=== PATIENT | male | born 1985 | race Caucasian/White ===

== ENCOUNTER 2017-04-02 09:11 | Observation (INO) | payer OTHER ==
[2017-04-02] VITALS (12 sets, daily range): BP systolic 153–189; BP diastolic 94–132; PULSE 90–132; RESP 14–28; TEMP 98.2–98.4; O2SAT 97–100
[~2017-04-02] VITALS: Ht 167.6 cm; Wt 100.0 kg
[2017-04-02] MEDS ORDERED: SODIUM CHLORIDE 0.9% FLUSH 10 ML FLUSH IVF PRN (10:00)
[2017-04-02] MEDS ORDERED: SODIUM CHLOR 0.9% 1000 ML INJ 1,000 ML IV ONE ×3 (10:00→13:00)
--- NOTE | 2017-04-02 10:05 | PD ---
HPI Chief Complaint: Hypertension Time Seen by Provider: 09:35 Travel History International Travel<30 days: No Contact w/Intl Traveler<30days: No Traveled to known affect area: No History of Present Illness HPI Patient is a 32-year-old male who presents to emergency room with complaints of hypertension. Patient reports that he noticed increased junk in his left eye, reports that he went to the [facility] this AM, and was treated for his conjunctivitis with Polytrim. Reports that he was told that his blood pressure was very high and that he had to go straight to the ER for evaluation. Patient reports that he was told that he had hypertension for years , reports that he did see his primary care doctor last year and at that time, his blood pressure was high. Reports that he was never started on any anti- hypertensives. Reports that today, he has a mild posterior headache. Denies any vision changes, denies any headache/dizzyness at this time. Denies n/v. Reports that he did have an episode of chest pain on route to the urgent care. Patient reports that for 30 minutes as he was driving to the urgent care, he felt sharp stabbing pain to his chest with associated shortness of breath, reports that he had resolution of symptoms shortly after he rested urgent care center. Patient denies any history of PE or DVT, denies any history of any recent travels or prolonged trips. He denies any drug abuse. Patient denies any chest pain at this time. Patient reports that he does not have any medical history and does not have any past surgical histories. He does smoke one pack of cigarettes per day. Patient with strong family history for hypertension. PFSH Past Medical History Anxiety: Yes Cardiovascular Problems: Yes (htn in past with no meds) Diminished Hearing: No Immunizations Current: Yes Past Surgical History Surgical History: No Previous Surgery Social History Alcohol Use: No Tobacco Use: Yes (a pack a day ) Substance Use: No Allergies-Medications (Allergen,Severity, Reaction): Coded Allergies: No Known Allergies (Unverified , 04/02/17) Reported Meds & Prescriptions Reported Meds & Active Scripts Active Norvasc (Amlodipine Besylate) 5 Mg Tab 5 Mg PO DAILY Review of Systems General / Constitutional: No: Fever Eyes: No: Visual changes HENT: Positive: Headaches Cardiovascular: Positive: Chest Pain or Discomfort, Tachycardia Respiratory: Positive: Shortness of Breath Gastrointestinal: No: Abdominal Pain Genitourinary: No: Dysuria Musculoskeletal: No: Pain Skin: No Rash Neurologic: No: Weakness Psychiatric: No: Depression Endocrine: No: Polydipsia Hematologic/Lymphatic: No: Easy Bruising Physical Exam Narrative GENERAL: No acute distress, nontoxic SKIN: Focused skin assessment warm/dry. HEAD: Atraumatic. Normocephalic. ENT: No nasal bleeding or discharge. Mucous membranes pink and moist. NECK: Trachea midline. No JVD. CARDIOVASCULAR: Tachycardic. No murmur appreciated. RESPIRATORY: No accessory muscle use. Clear to auscultation. Breath sounds equal bilaterally. GASTROINTESTINAL: Abdomen soft, non-tender, nondistended. Hepatic and splenic margins not palpable. MUSCULOSKELETAL: No obvious deformities. No clubbing. No cyanosis. No edema. NEUROLOGICAL: Awake and alert. No obvious cranial nerve deficits. Motor grossly within normal limits. Normal speech. PSYCHIATRIC: Appropriate mood and affect; insight and judgment normal. Data Data Last Documented VS Vital Signs Date Time Temp Pulse Resp B/P Pulse Ox O2 Delivery O2 Flow Rate FiO2 04/02/17 12:54 117 18 153/102 97 Room Air 04/02/17 09:13 98.2 Orders Electrocardiogram (04/02/17 09:50) B-Type Natriuretic Peptide (04/02/17 09:50) Ckmb (Isoenzyme) Profile (04/02/17 09:50) Complete Blood Count With Diff (04/02/17 09:50) Comprehensive Metabolic Panel (04/02/17 09:50) D-Dimer (04/02/17 09:50) Magnesium (Mg) (04/02/17 09:50) Prothrombin Time / Inr (Pt) (04/02/17 09:50) Act Partial Throm Time (Ptt) (04/02/17 09:50) Troponin I (04/02/17 09:50) Lipase (04/02/17 09:50) Chest, Single Ap (04/02/17 09:50) Ecg Monitoring (04/02/17 09:50) Iv Access Insert/Monitor (04/02/17 09:50) Oximetry (04/02/17 09:50) Sodium Chloride 0.9% Flush (Ns Flush) (04/02/17 10:00) Thyroid Stimulating Hormone (04/02/17 09:50) Drug Screen, Random Urine (04/02/17 09:50) Sodium Chlor 0.9% 1000 Ml Inj (Ns 1000 M (04/02/17 10:00) Amlodipine (Norvasc) (04/02/17 10:15) CKMB (04/02/17 08:50) CKMB% (04/02/17 08:50) Sodium Chlor 0.9% 1000 Ml Inj (Ns 1000 M (04/02/17 11:45) Ct Pulmonary Angiogram (04/02/17 12:56) Sodium Chlor 0.9% 1000 Ml Inj (Ns 1000 M (04/02/17 13:00) Iohexol 350 Inj (Omnipaque 350 Inj) (04/02/17 13:36) Labs Laboratory Tests Test 04/02/17 08:50 White Blood Count 13.0 TH/MM3 Red Blood Count 5.80 MIL/MM3 Hemoglobin 16.5 GM/DL Hematocrit 48.6 % Mean Corpuscular Volume 83.8 FL Mean Corpuscular Hemoglobin 28.5 PG Mean Corpuscular Hemoglobin 34.0 % Concent Red Cell Distribution Width 13.8 % Platelet Count 258 TH/MM3 Mean Platelet Volume 7.3 FL Neutrophils (%) (Auto) 70.2 % Lymphocytes (%) (Auto) 19.9 % Monocytes (%) (Auto) 8.7 % Eosinophils (%) (Auto) 0.8 % Basophils (%) (Auto) 0.4 % Neutrophils # (Auto) 9.1 TH/MM3 Lymphocytes # (Auto) 2.6 TH/MM3 Monocytes # (Auto) 1.1 TH/MM3 Eosinophils # (Auto) 0.1 TH/MM3 Basophils # (Auto) 0.1 TH/MM3 CBC Comment DIFF FINAL Differential Comment Prothrombin Time 10.0 SEC Prothromb Time International 0.9 RATIO Ratio Activated Partial 36.3 SEC Thromboplast Time D-Dimer Quantitative (PE/DVT) 0.20 MG/L FEU Sodium Level 137 MEQ/L Potassium Level 3.9 MEQ/L Chloride Level 105 MEQ/L Carbon Dioxide Level 25.3 MEQ/L Anion Gap 7 MEQ/L Blood Urea Nitrogen 12 MG/DL Creatinine 1.04 MG/DL Estimat Glomerular Filtration 83 ML/MIN Rate Random Glucose 102 MG/DL Calcium Level 9.3 MG/DL Magnesium Level 2.0 MG/DL Total Bilirubin 0.5 MG/DL Aspartate Amino Transf 50 U/L (AST/SGOT) Alanine Aminotransferase 89 U/L (ALT/SGPT) Alkaline Phosphatase 62 U/L Total Creatine Kinase 513 U/L Creatine Kinase MB 2.8 NG/ML Creatine Kinase MB % 0.5 % Troponin I LESS THAN 0.02 NG/ML B-Type Natriuretic Peptide LESS THAN 2 PG/ML Total Protein 8.3 GM/DL Albumin 4.3 GM/DL Lipase 117 U/L Thyroid Stimulating Hormone 8.940 uIU/ML [address] [place] [address] Medical Decision Making Medical Screen Exam Complete: Yes Emergency Medical Condition: Yes Interpretation(s) EKG at 0945: Sinus tachycardia at 125bpm, qt/qtc: 283/357, nonspecific t wave changes Vital Signs Date Time Temp Pulse Resp B/P Pulse Ox O2 Delivery O2 Flow Rate FiO2 04/02/17 09:48 128 14 171/108 98 Room Air 04/02/17 09:24 132 18 168/132 97 Room Air 168/108 04/02/17 09:24 98 Room Air 04/02/17 09:13 98.2 130 20 189/114 98 Room Air Differential Diagnosis Differential includes hypertension, electrolyte abnormalities, PE, DVT, dehydration, drug abuse, anxiety reaction, hyperthyroidism Narrative Course Patient is a 32-year-old male who presents to emergency room for evaluation of hypertension. Patient was seen in urgent care earlier today and was diagnosed with an eye infection, reports that he was told to go to the emergency room emergently as his blood pressure was elevated. Patient unsure of what his blood pressure was at the urgent care center. Patient at this time with no complaints except for mild posterior headache. Patient has normal neurological exam, denies any chest pain or shortness of breath at this time. Patient does admit to having sharp stabbing chest pain as well as shortness of breath on route to the urgent care center today, symptoms resolved once he arrived at the urgent care center. Vital signs reviewed Vital Signs Date Time Temp Pulse Resp B/P Pulse Ox O2 Delivery O2 Flow Rate FiO2 04/02/17 09:48 128 14 171/108 98 Room Air 04/02/17 09:24 132 18 168/132 97 Room Air 168/108 04/02/17 09:24 98 Room Air 04/02/17 09:13 98.2 130 20 189/114 98 Room Air Patient was placed on a pilot fuel engineer upon arrival to the emergency room. Patient is tachycardic with heart rate in the 120s, his blood pressure was elevated at 189/114. Patient with no documented history of hypertension, plan to start him on antihypertensives as he does complain of posterior headache at this time and does report a 6 year history of hypertension which has been untreated. he understands that he must follow-up with his primary care doctor as soon as possible as you will need blood pressure rechecks. In the meantime, plan to check basic labs, will check TSH, as well as a d- dimer. will give IV fluid fluids and monitor on a pilot fuel engineer. Patient has received 3L IVF, HR still in the 120-130s. Plan to obs for further workup of persistent tachycardia Laboratory Tests Test 04/02/17 08:50 White Blood Count 13.0 TH/MM3 (4.0-11.0) Red Blood Count 5.80 MIL/MM3 (4.50-5.90) Hemoglobin 16.5 GM/DL (13.0-17.0) Hematocrit 48.6 % (39.0-51.0) Mean Corpuscular Volume 83.8 FL (80.0-100.0) Mean Corpuscular Hemoglobin 28.5 PG (27.0-34.0) Mean Corpuscular Hemoglobin 34.0 % Concent (32.0-36.0) Red Cell Distribution Width 13.8 % (11.6-17.2) Platelet Count 258 TH/MM3 (150-450) Mean Platelet Volume 7.3 FL (7.0-11.0) Neutrophils (%) (Auto) 70.2 % (16.0-70.0) Lymphocytes (%) (Auto) 19.9 % (9.0-44.0) Monocytes (%) (Auto) 8.7 % (0.0-8.0) Eosinophils (%) (Auto) 0.8 % (0.0-4.0) Basophils (%) (Auto) 0.4 % (0.0-2.0) Neutrophils # (Auto) 9.1 TH/MM3 (1.8-7.7) Lymphocytes # (Auto) 2.6 TH/MM3 (1.0-4.8) Monocytes # (Auto) 1.1 TH/MM3 (0-0.9) Eosinophils # (Auto) 0.1 TH/MM3 (0-0.4) Basophils # (Auto) 0.1 TH/MM3 (0-0.2) CBC Comment DIFF FINAL Differential Comment Prothrombin Time 10.0 SEC (9.8-11.6) Prothromb Time International 0.9 RATIO Ratio Activated Partial 36.3 SEC Thromboplast Time (24.3-30.1) D-Dimer Quantitative (PE/DVT) 0.20 MG/L FEU (0.00-0.50) Sodium Level 137 MEQ/L (136-145) Potassium Level 3.9 MEQ/L (3.5-5.1) Chloride Level 105 MEQ/L (98-107) Carbon Dioxide Level 25.3 MEQ/L (21.0-32.0) Anion Gap 7 MEQ/L (5-15) Blood Urea Nitrogen 12 MG/DL (7-18) Creatinine 1.04 MG/DL (0.60-1.30) Estimat Glomerular Filtration 83 ML/MIN (>89) Rate Random Glucose 102 MG/DL (74-106) Calcium Level 9.3 MG/DL (8.5-10.1) Magnesium Level 2.0 MG/DL (1.5-2.5) Total Bilirubin 0.5 MG/DL (0.2-1.0) Aspartate Amino Transf 50 U/L (15-37) (AST/SGOT) Alanine Aminotransferase 89 U/L (12-78) (ALT/SGPT) Alkaline Phosphatase 62 U/L (45-117) Total Creatine Kinase 513 U/L (39-308) Creatine Kinase MB 2.8 NG/ML (0.5-3.6) Creatine Kinase MB % 0.5 % (0.0-4.0) Troponin I LESS THAN 0.02 NG/ML (0.02-0.05) B-Type Natriuretic Peptide LESS THAN 2 PG/ML (0-100) Total Protein 8.3 GM/DL (6.4-8.2) Albumin 4.3 GM/DL (3.4-5.0) Lipase 117 U/L (73-393) Thyroid Stimulating Hormone 8.940 uIU/ML 3rd Gen (0.358-3.740) Last Impressions CT Angiography 04/02/17 7786 Signed Impressions: Service Date/Time: Sunday, April 02, 2017 13:18 - CONCLUSION: 1. No pulmonary embolus identified. 2. Decreased attenuation of the liver suggesting fatty infiltration. Chato Sepulveda MD Chest X-Ray 04/02/17 0950 Signed Impressions: Service Date/Time: Sunday, April 02, 2017 09:47 - CONCLUSION: 1. No acute cardiopulmonary findings. Chato Sepulveda MD Physician Communication Physician Communication case reviewed with dr. thompson who accepts pt to service for obs Diagnosis Primary Impression: Hypertension Qualified Code: I10 - Hypertension, unspecified type Additional Impressions: Abnormal TSH Rhabdomyolysis Qualified Code: M62.82 - Non-traumatic rhabdomyolysis Tachycardia Admitting Information Admitting Physician Requests: Observation Patient Instructions: General Instructions Additional Instructions: Please provide patient with a copy of his lab work at discharge Please follow up with your primary care doctor in 2-3 days, please bring the copy of your lab work to your doctor's office as you did have abnormal lab work today and you will need a full thyroid panel performed by your primary care doctor You will need to have your blood pressure rechecked, in 2-3 days, if you cannot be seen by your primary care doctor, return to the ER for blood pressure re- check Please take all medications as prescribed Please drink plenty of fluids Return to ER if symptoms worsen or persist Return to ER as needed Med/Other Pt SpecificInfo: Prescription(s) given Scripts Amlodipine (Norvasc)5 Mg Tab5 Mg PO DAILY #30 TAB Ref 0 Prov:Mary Soliz DO 04/02/17 Mary Soliz DO Apr 02, 2017 10:05
[2017-04-02] MEDS ORDERED: amLODIPine BESYLATE 5 MG TAB PO ONE (10:15)
--- NOTE | 2017-04-02 10:15 | RADRPT ---
EXAM DATE/TIME: 04/02/2017 09:47 [facility] COMPARISON: No previous studies available for comparison. INDICATIONS : Sent by [facility], high blood pressure. MEDICAL HISTORY : None. SURGICAL HISTORY : None. ENCOUNTER: Initial ACUITY: 1 day PAIN SCORE: 0/10 LOCATION: Bilateral chest FINDINGS: A single view of the chest demonstrates the lungs to be symmetrically aerated without evidence of mas s, infiltrate or effusion. The cardiomediastinal contours are unremarkable. Osseous structures are intact. CONCLUSION: 1. No acute cardiopulmonary findings. Chato Sepulveda MD on April 02, 2017 at 10:12 Board Certified Radiologist. This report was verified electronically.
[2017-04-02 10:26] LABS: AUTOMATED NEUTROPHIL # 9.1 TH/MM3 (1.8-7.7); BASOPHIL # 0.1 TH/MM3 (0-0.2); BASOPHIL % 0.4 % (0.0-2.0); EOSINOPHIL # 0.1 TH/MM3 (0-0.4); EOSINOPHIL % 0.8 % (0.0-4.0); HEMATOCRIT 48.6 % (39.0-51.0); HEMO FLAGS DIFF FINAL; LYMPH % 19.9 % (9.0-44.0); LYMPHOCYTE # 2.6 TH/MM3 (1.0-4.8); MEAN CELL VOLUME 83.8 FL (80.0-100.0); MEAN CORPUSCULAR HEMOGLOBIN 28.5 PG (27.0-34.0); MONO % 8.7 % (0.0-8.0); NEUT % 70.2 % (16.0-70.0); PLATELET COUNT 258 TH/MM3 (150-450); RED CELL DISTRIBUTION WIDTH 13.8 % (11.6-17.2)
[2017-04-02 10:43] LABS: APTT (PATIENT) 36.3 SEC (24.3-30.1); INTERNATIONAL NORMALIZED RATIO 0.9 RATIO
[2017-04-02 10:44] LABS: ALT (GPT) 89 U/L (12-78)
[2017-04-02 10:52] LABS: ANION GAP 7 MEQ/L (5-15); AST (GOT) 50 U/L (15-37); BICARBONATE 25.3 MEQ/L (21.0-32.0); BLOOD UREA NITROGEN 12 MG/DL (7-18); CHLORIDE 105 MEQ/L (98-107); GLOMERULAR FILTRATION RATE 83 ML/MIN (>89); POTASSIUM 3.9 MEQ/L (3.5-5.1); SODIUM (NA) 137 MEQ/L (136-145)
[2017-04-02 10:54] LABS: ALKALINE PHOSPHATASE 62 U/L (45-117); CREATINE KINASE 513 U/L (39-308); TOTAL BILIRUBIN ADULT 0.5 MG/DL (0.2-1.0)
[2017-04-02 11:06] LABS: CKMB 2.8 NG/ML (0.5-3.6)
[2017-04-02] MEDS ORDERED: AMLO5 PO (11:39)
--- NOTE | 2017-04-02 13:17 | EKG ---
Date Performed: 04/02/2017 Time Performed: 09:45:00 PTAGE: 32 years EKG: SINUS TACHYCARDIA NONSPECIFIC T-WAVE ABNORMALITY ABNORMAL ECG NO PREVIOUS TRACING DOCTOR: Bret Gomez Interpretating Date/Time 04/02/2017 13:13:09
[2017-04-02] MEDS ORDERED: IOHEXOL 350 MG/ML 10 ML VIAL (for RAD DIAG) IV ONE (13:36)
--- NOTE | 2017-04-02 13:45 | RADRPT ---
EXAM DATE/TIME: 04/02/2017 13:18 [facility] COMPARISON: No previous studies available for comparison. INDICATIONS : Hypertension and shortness of breath, congestion. IV CONTRAST: 75 cc Omnipaque 350 (iohexol) IV RADIATION DOSE: 25.61 CTDIvol (mGy) MEDICAL HISTORY : Cardiovascular disease. Hypertension. SURGICAL HISTORY : None. ENCOUNTER: Initial ACUITY: 1 day PAIN SCALE: 0/10 LOCATION: Bilateral chest TECHNIQUE: Volumetric scanning of the chest was performed using a pulmonary embolism protocol MIP images were re constructed. Using automated exposure control and adjustment of the mA and/or kV according to patien t size, radiation dose was kept as low as reasonably achievable to obtain optimal diagnostic quality images. DICOM format image data is available electronically for review and comparison. FINDINGS: PULMONARY ARTERIES: No filling defects are seen in the pulmonary arteries through the segmental level. LUNGS: There is no consolidation or pneumothorax . No concerning pulmonary nodule is visualized. PLEURAE: There is no pleural thickening or pleural effusion. MEDIASTINUM: There is good visualization of the great vessels of the middle mediastinum. No evidence of mediastin al or hilar adenopathy/mass. MUSCULOSKELETAL: Within normal limits for patient age. MISCELLANEOUS: The visualized upper abdominal organs demonstrate decreased attenuation of the liver suggesting fatty infiltration. CONCLUSION: 1. No pulmonary embolus identified. 2. Decreased attenuation of the liver suggesting fatty infiltration. Chato Sepulveda MD on April 02, 2017 at 13:40 Board Certified Radiologist. This report was verified electronically.
[2017-04-02 16:54] LABS: AMPHETAMINE, URINE NEG (NEG); BARBITURATES, URINE NEG (NEG); COCAINE, URINE NEG (NEG)
--- NOTE | 2017-04-02 17:44 | PD.PN.STU ---
Subjective Remarks Patient is a 32 year old male presenting to the ED this morning with elevated heart rate and blood pressure. Upon waking up this morning he noted discharge and conjunctival injection in his left eye and visited an urgent care center, who recommended ED presentation after checking vitals. While on the way the patient claims left lower chest pain for approximately 15 minutes, sharp in nature, with gradual onset and dissipation. Since that time he has had no additional chest pain or discomfort. He has visited the ED before for similar chest pain approximately 10 years ago, which was attributed to anxiety. The patient admits to becoming more anxious upon being told of his blood pressure this morning. Patient was previously diagnosed by pcp for hypertension. He does not take any medications. Smokes 1 ppd for 15 years. Does not drink. Currently the patient is resting well in his bed in no apparent discomfort. He states he is "congested and tired". He has a 6 month old at home that regularly disturbs his sleep. Patient has strong family hx of hypertension. Initial ekg shows nonspecific t wave changes. Cxr shows no acute findings. D dimer is wnl. Labs otherwise are unremarkable. Objective Vitals Vital Signs Date Time Temp Pulse Resp B/P Pulse Ox O2 Delivery O2 Flow Rate FiO2 04/02/17 15:58 118 18 161/94 98 Room Air 04/02/17 14:37 116 20 155/103 100 Room Air 04/02/17 12:54 117 18 153/102 97 Room Air 04/02/17 11:35 110 15 161/105 98 Room Air 04/02/17 10:02 97 04/02/17 09:48 128 14 171/108 98 Room Air 04/02/17 09:24 132 18 168/132 97 Room Air 168/108 04/02/17 09:24 98 Room Air 04/02/17 09:13 98.2 130 20 189/114 98 Room Air I/O 04/01/17 04/01/17 04/01/17 04/02/17 04/02/17 04/02/17 07:00 15:00 23:00 07:00 15:00 23:00 Intake Total 3000 ml Output Total 1000 ml Balance 2000 ml Intake IV Total 3000 ml Output Urine Total 1000 ml # Voids 2 Result Diagram: 04/02/17 0850 04/02/17 0850 Other Results Laboratory Tests Test 04/02/17 08:50 White Blood Count 13.0 TH/MM3 (4.0-11.0) Red Blood Count 5.80 MIL/MM3 (4.50-5.90) Hemoglobin 16.5 GM/DL (13.0-17.0) Hematocrit 48.6 % (39.0-51.0) Mean Corpuscular Volume 83.8 FL (80.0-100.0) Mean Corpuscular Hemoglobin 28.5 PG (27.0-34.0) Mean Corpuscular Hemoglobin 34.0 % Concent (32.0-36.0) Red Cell Distribution Width 13.8 % (11.6-17.2) Platelet Count 258 TH/MM3 (150-450) Mean Platelet Volume 7.3 FL (7.0-11.0) Neutrophils (%) (Auto) 70.2 % (16.0-70.0) Lymphocytes (%) (Auto) 19.9 % (9.0-44.0) Monocytes (%) (Auto) 8.7 % (0.0-8.0) Eosinophils (%) (Auto) 0.8 % (0.0-4.0) Basophils (%) (Auto) 0.4 % (0.0-2.0) Neutrophils # (Auto) 9.1 TH/MM3 (1.8-7.7) Lymphocytes # (Auto) 2.6 TH/MM3 (1.0-4.8) Monocytes # (Auto) 1.1 TH/MM3 (0-0.9) Eosinophils # (Auto) 0.1 TH/MM3 (0-0.4) Basophils # (Auto) 0.1 TH/MM3 (0-0.2) CBC Comment DIFF FINAL Differential Comment Prothrombin Time 10.0 SEC (9.8-11.6) Prothromb Time International 0.9 RATIO Ratio Activated Partial 36.3 SEC Thromboplast Time (24.3-30.1) D-Dimer Quantitative (PE/DVT) 0.20 MG/L FEU (0.00-0.50) Sodium Level 137 MEQ/L (136-145) Potassium Level 3.9 MEQ/L (3.5-5.1) Chloride Level 105 MEQ/L (98-107) Carbon Dioxide Level 25.3 MEQ/L (21.0-32.0) Anion Gap 7 MEQ/L (5-15) Blood Urea Nitrogen 12 MG/DL (7-18) Creatinine 1.04 MG/DL (0.60-1.30) Estimat Glomerular Filtration 83 ML/MIN (>89) Rate Random Glucose 102 MG/DL (74-106) Calcium Level 9.3 MG/DL (8.5-10.1) Magnesium Level 2.0 MG/DL (1.5-2.5) Total Bilirubin 0.5 MG/DL (0.2-1.0) Aspartate Amino Transf 50 U/L (15-37) (AST/SGOT) Alanine Aminotransferase 89 U/L (12-78) (ALT/SGPT) Alkaline Phosphatase 62 U/L (45-117) Total Creatine Kinase 513 U/L (39-308) Creatine Kinase MB 2.8 NG/ML (0.5-3.6) Creatine Kinase MB % 0.5 % (0.0-4.0) Troponin I LESS THAN 0.02 NG/ML (0.02-0.05) B-Type Natriuretic Peptide LESS THAN 2 PG/ML (0-100) Total Protein 8.3 GM/DL (6.4-8.2) Albumin 4.3 GM/DL (3.4-5.0) Lipase 117 U/L (73-393) Thyroid Stimulating Hormone 8.940 uIU/ML 3rd Gen (0.358-3.740) Imaging Last [address] Angiography 04/02/17 1256 Signed Impressions: Service Date/Time: Sunday, April 02, 2017 13:18 - CONCLUSION: 1. No pulmonary embolus identified. 2. Decreased attenuation of the liver suggesting fatty infiltration. Chato Sepulveda MD Chest X-Ray 04/02/17 0933 Signed Impressions: Service Date/Time: Sunday, April 02, 2017 09:47 - CONCLUSION: 1. No acute cardiopulmonary findings. Chato Sepulveda MD Objective Remarks GENERAL: This is a well-nourished, well-developed obese patient in no acute distress. SKIN: No rashes, ecchymoses or lesions. HEAD: Atraumatic. Normocephalic. EYES: Pupils equal round and reactive. Left conjunctival injection without discharge noted. ENT: Nose without bleeding, purulent drainage or septal hematoma. Throat without erythema, tonsillar hypertrophy or exudate. Uvula midline. Airway patent. NECK: Trachea midline. CARDIOVASCULAR: Regular rate and rhythm without murmurs, gallops, or rubs. RESPIRATORY: Clear to auscultation. Breath sounds equal bilaterally. No wheezes , rales, or rhonchi. GASTROINTESTINAL: Abdomen soft, non-tender, nondistended. Characterization difficult due to size. No guarding. MUSCULOSKELETAL: Extremities without clubbing, cyanosis, or edema. No joint tenderness, effusion, or edema noted. No calf tenderness. NEUROLOGICAL: Awake and alert. Motor and sensory grossly within normal limits.Normal speech. Medications and IVs Allergies Coded Allergies Type Severity Reaction Last Updated Verified No Known Allergies 04/02/17 No Active Scripts Medications Dose Route/Sig Days Date Category Norvasc (Amlodipine Besylate) 5 Mg Tab 5 Mg PO DAILY 04/02/17 Rx A/P Assessment and Plan Patient is a 32 year old male presenting with incidental hypertension finding at outpatient office. En route to the ED he experienced 15 minutes of lower left sided chest pain with gradual on/offset. Pain not reproducible by positioning or palpation. Initial presentation blood pressures reached a maximum of 189/114 with pulse of 130. Despite 3 liters of NS bolus, blood pressure remains elevated (161/94) with pulse at 118bpm. Ekg shows sinus tachycardia with nonspecific t wave abnormalities. 1) Hypertensive Crisis Patient previously diagnosed with hypertension; Presents with hypertension and tachycardia with little response to 3 liters of NS Initiate IV beta heydi therapy to address hypertension and tachycardia ( Labetalol due to some alpha activity) Monitor patient overnight to verify control of pressure and pulse Outpatient follow up in one week 2) Sinus Tachycardia Likely secondary to anxiety Treatment with beta blockade (Labetalol) 2) Anxiety Likely etiology for stress induced chest pain, admits to arising in times of stress Consider treatment with outpatient pcp to discuss treatment options 3) Tobacco use Book Jogger patient on the benefits of smoking cessation Give patient resources from [employer] and inform of free and reduced nicotine replacement programs 4) Obesity Hypertension likely to lessen with moderate weight loss Discharge Planning Observation overnight with constant cardiac and bp monitoring. If asymptomatic in morning with pressures under 150/90, discharge to home with recommendation for outpatient follow up within one week. Give one month 50mg daily metoprolol at discharge. If chest pain returns, return to ED. Desiree Dubose M3 Apr 02, 2017 17:44
--- NOTE | 2017-04-02 18:27 | HHI.HP ---
HPI Service CP Hospitalists Primary Care Physician Unknown Admission Diagnosis Persistant Tachycardia Chief Complaint: high bp tachycardia Travel History International Travel<30 Days: No Contact w/Intl Traveler <30 Da: No Traveled to Known Affected Are: No History of Present Illness Pt is 32 yo who presented from urgent care clinic with c/o htn and tachycardia. He went to the clinic for c/o left eye irritation which he states has currently resolved.l He was noted to have severe htn and tachycardia. Pt admits to stress and anxiety. He was last checked for htn about one yr ago and pt suspects he has been hypertensive over the past yr and on no meds. He intermittently feels palpitations and they may be related to periods of stress. His father believes most stress is work related. pt says comes on when putting kids to bed. In ED pt had cta chest that was negative. given norvasc. Review of Systems Other palpitation stress. Past Family Social History Past Medical History htn. untreated stress Reported Medications none Allergies: Coded Allergies: No Known Allergies (Unverified , 04/02/17) Family History nc Social History 15yrs 1ppd no etoh Physical Exam Vital Signs nad heart reg lung cta abd s/nt ext no edema no bruits noted. Vital Signs Date Time Temp Pulse Resp B/P Pulse Ox O2 Delivery O2 Flow Rate FiO2 04/02/17 17:47 98.4 120 28 168/105 97 04/02/17 17:03 122 20 174/99 97 Room Air 04/02/17 15:58 118 18 161/94 98 Room Air 04/02/17 14:37 116 20 155/103 100 Room Air 04/02/17 12:54 117 18 153/102 97 Room Air 04/02/17 11:35 110 15 161/105 98 Room Air 04/02/17 10:02 97 04/02/17 09:48 128 14 171/108 98 Room Air 04/02/17 09:24 132 18 168/132 97 Room Air 168/108 04/02/17 09:24 98 Room Air 04/02/17 09:13 98.2 130 20 189/114 98 Room Air Laboratory Laboratory Tests Test 04/02/17 04/02/17 08:50 15:40 White Blood Count 13.0 Red Blood Count 5.80 Hemoglobin 16.5 Hematocrit 48.6 Mean Corpuscular Volume 83.8 Mean Corpuscular Hemoglobin 28.5 Mean Corpuscular Hemoglobin 34.0 Concent Red Cell Distribution Width 13.8 Platelet Count 258 Mean Platelet Volume 7.3 Neutrophils (%) (Auto) 70.2 Lymphocytes (%) (Auto) 19.9 Monocytes (%) (Auto) 8.7 Eosinophils (%) (Auto) 0.8 Basophils (%) (Auto) 0.4 Neutrophils # (Auto) 9.1 Lymphocytes # (Auto) 2.6 Monocytes # (Auto) 1.1 Eosinophils # (Auto) 0.1 Basophils # (Auto) 0.1 CBC Comment DIFF FINAL Differential Comment Prothrombin Time 10.0 Prothromb Time International 0.9 Ratio Activated Partial 36.3 Thromboplast Time D-Dimer Quantitative (PE/DVT) 0.20 Sodium Level 137 Potassium Level 3.9 Chloride Level 105 Carbon Dioxide Level 25.3 Anion Gap 7 Blood Urea Nitrogen 12 Creatinine 1.04 Estimat Glomerular Filtration 83 Rate Random Glucose 102 Calcium Level 9.3 Magnesium Level 2.0 Total Bilirubin 0.5 Aspartate Amino Transf 50 (AST/SGOT) Alanine Aminotransferase 89 (ALT/SGPT) Alkaline Phosphatase 62 Total Creatine Kinase 513 Creatine Kinase MB 2.8 Creatine Kinase MB % 0.5 Troponin I LESS THAN 0.02 B-Type Natriuretic Peptide LESS THAN 2 Total Protein 8.3 Albumin 4.3 Lipase 117 Thyroid Stimulating Hormone 8.940 3rd Gen Urine Opiates Screen NEG Urine Barbiturates Screen NEG Urine Amphetamines Screen NEG Urine Benzodiazepines Screen NEG Urine Cocaine Screen NEG Urine Cannabinoids Screen NEG Result Diagram: 04/02/17 0850 04/02/17 0850 Assessment and Plan Problem List: (1) Hypertension Status: Acute Plan: Pt is 32 yo who presents with severe htn and sinus tachycardia There may be a component of stress/anxiety contributing to the above. No obvious reason for the tachycardia otherwise. No pain, No PE, No fever. No hyperthyroidism. will start scheduled bp control. prn meds ordered. telemetry overnight. echo to eval LVF limited secondary htn eval started. f/u outpt. prn anxiolytic overnight close pcp f/u (2) Tachycardia Status: Acute Plan: see above (3) Anxiety Status: Acute Plan: see above Problem Qualifiers (1) Hypertension: Qualified Code: I10 - Hypertension, unspecified type Angel Chris MD Apr 02, 2017 18:27
[2017-04-02] MEDS ORDERED: ONDANSETRON HCL 4 MG/2 ML VIAL IV PUSH PRN (18:30)
[2017-04-02] MEDS ORDERED: LORazepam 0.5 MG TAB PO PRN (18:30)
[2017-04-02] MEDS ORDERED: ENALAPRILAT 1.25 MG/ML VIAL IV PUSH PRN (18:30)
[2017-04-02] MEDS ORDERED: cloNIDine HCL 0.1 MG TAB PO PRN (18:30)
[2017-04-02] MEDS ORDERED: NIFEdipine 30 MG SUSTAINED RELEASE TAB PO SCH (18:30)
[2017-04-02] MEDS: NIFEdipine 30 MG SUSTAINED RELEASE TAB PO SCH (21:02)
[2017-04-02] MEDS ORDERED: METOPROLOL TARTRATE 25 MG TAB PO ONE (22:00)
[2017-04-03 00:52] VITALS: BP 132/87; PULSE 108; RESP 20; TEMP 98.5; O2SAT 97
[2017-04-03 05:10] VITALS: BP 129/79; PULSE 116; RESP 18; TEMP 98.2; O2SAT 96
[2017-04-03 07:58] LABS: AUTOMATED NEUTROPHIL # 9.7 TH/MM3 (1.8-7.7); BASOPHIL # 0.1 TH/MM3 (0-0.2); BASOPHIL % 0.5 % (0.0-2.0); EOSINOPHIL % 0.3 % (0.0-4.0); HEMATOCRIT 47.3 % (39.0-51.0); HEMO FLAGS DIFF FINAL; LYMPH % 19.8 % (9.0-44.0); LYMPHOCYTE # 2.8 TH/MM3 (1.0-4.8); MEAN CELL VOLUME 84.8 FL (80.0-100.0); MEAN CORPUSCULAR HEMOGLOBIN 28.5 PG (27.0-34.0); MEAN CORPUSCULAR HGB CONC 33.6 % (32.0-36.0); MONO % 10.3 % (0.0-8.0); NEUT % 69.1 % (16.0-70.0); PLATELET COUNT 238 TH/MM3 (150-450); RED BLOOD COUNT 5.58 MIL/MM3 (4.50-5.90); RED CELL DISTRIBUTION WIDTH 13.7 % (11.6-17.2); WHITE BLOOD COUNT 14.1 TH/MM3 (4.0-11.0)
[2017-04-03 08:00] VITALS: PULSE 93
[2017-04-03 08:04] VITALS: BP 121/83; PULSE 108; RESP 20; TEMP 98.1; O2SAT 97
--- NOTE | 2017-04-03 08:59 | PD.PN.STU ---
Subjective Remarks Patient complains of pain this morning in lower left chest. Pain is sharp in nature, lasting 5 minutes at maximum. Patient states it occurs when he is "getting worked up and anxious" and dissipates when he calms himself. Patient also complains of nasal congestion and drainage. Heart rates and bp continue to trend downwards. Last vitals show 108bpm, 121/83 pressures, down from 122bpm and 177/101 twelve hours prior. Telemetry shows sinus tachycardia with nonspecific t wave changes. Prn clonidine and ativan not requested by patient. AM cortisol and renin panels pending. Patient is eager to return home and has contacted his primary care doctor to follow up outpatient. Objective Vitals Vital Signs Date Time Temp Pulse Resp B/P Pulse Ox O2 Delivery O2 Flow Rate FiO2 04/03/17 08:04 98.1 108 20 121/83 97 04/03/17 05:10 98.2 116 18 129/79 96 04/03/17 00:52 98.5 108 20 132/87 97 04/02/17 22:50 90 04/02/17 20:04 98.3 122 20 177/101 98 04/02/17 17:47 98.4 120 28 168/105 97 04/02/17 17:03 122 20 174/99 97 Room Air 04/02/17 15:58 118 18 161/94 98 Room Air 04/02/17 14:37 116 20 155/103 100 Room Air 04/02/17 12:54 117 18 153/102 97 Room Air 04/02/17 11:35 110 15 161/105 98 Room Air 04/02/17 10:02 97 04/02/17 09:48 128 14 171/108 98 Room Air 04/02/17 09:24 132 18 168/132 97 Room Air 168/108 04/02/17 09:24 98 Room Air 04/02/17 09:13 98.2 130 20 189/114 98 Room Air I/O 04/02/17 04/02/17 04/02/17 04/03/17 04/03/17 04/03/17 07:00 15:00 23:00 07:00 15:00 23:00 Intake Total 3000 ml Output Total 1000 ml 400 ml Balance 2000 ml -400 ml Intake IV Total 3000 ml Output Urine Total 1000 ml 400 ml # Voids 2 3 Result Diagram: 04/03/17 0715 04/02/17 0850 Other Results Laboratory Tests Test 04/02/17 04/02/17 04/03/17 08:50 15:40 07:15 White Blood Count 13.0 TH/MM3 14.1 TH/MM3 (4.0-11.0) (4.0-11.0) Red Blood Count 5.80 MIL/MM3 5.58 MIL/MM3 (4.50-5.90) (4.50-5.90) Hemoglobin 16.5 GM/DL 15.9 GM/DL (13.0-17.0) (13.0-17.0) Hematocrit 48.6 % 47.3 % (39.0-51.0) (39.0-51.0) Mean Corpuscular Volume 83.8 FL 84.8 FL (80.0-100.0) (80.0-100.0) Mean Corpuscular Hemoglobin 28.5 PG 28.5 PG (27.0-34.0) (27.0-34.0) Mean Corpuscular Hemoglobin 34.0 % 33.6 % Concent (32.0-36.0) (32.0-36.0) Red Cell Distribution Width 13.8 % 13.7 % (11.6-17.2) (11.6-17.2) Platelet Count 258 TH/MM3 238 TH/MM3 (150-450) (150-450) Mean Platelet Volume 7.3 FL 7.2 FL (7.0-11.0) (7.0-11.0) Neutrophils (%) (Auto) 70.2 % 69.1 % (16.0-70.0) (16.0-70.0) Lymphocytes (%) (Auto) 19.9 % 19.8 % (9.0-44.0) (9.0-44.0) Monocytes (%) (Auto) 8.7 % (0.0-8.0) 10.3 % (0.0-8.0) Eosinophils (%) (Auto) 0.8 % (0.0-4.0) 0.3 % (0.0-4.0) Basophils (%) (Auto) 0.4 % (0.0-2.0) 0.5 % (0.0-2.0) Neutrophils # (Auto) 9.1 TH/MM3 9.7 TH/MM3 (1.8-7.7) (1.8-7.7) Lymphocytes # (Auto) 2.6 TH/MM3 2.8 TH/MM3 (1.0-4.8) (1.0-4.8) Monocytes # (Auto) 1.1 TH/MM3 1.5 TH/MM3 (0-0.9) (0-0.9) Eosinophils # (Auto) 0.1 TH/MM3 0.0 TH/MM3 (0-0.4) (0-0.4) Basophils # (Auto) 0.1 TH/MM3 0.1 TH/MM3 (0-0.2) (0-0.2) CBC Comment DIFF FINAL DIFF FINAL Differential Comment Prothrombin Time 10.0 SEC (9.8-11.6) Prothromb Time International 0.9 RATIO Ratio Activated Partial 36.3 SEC Thromboplast Time (24.3-30.1) D-Dimer Quantitative (PE/DVT) 0.20 MG/L FEU (0.00-0.50) Sodium Level 137 MEQ/L (136-145) Potassium Level 3.9 MEQ/L (3.5-5.1) Chloride Level 105 MEQ/L (98-107) Carbon Dioxide Level 25.3 MEQ/L (21.0-32.0) Anion Gap 7 MEQ/L (5-15) Blood Urea Nitrogen 12 MG/DL (7-18) Creatinine 1.04 MG/DL (0.60-1.30) Estimat Glomerular Filtration 83 ML/MIN (>89) Rate Random Glucose 102 MG/DL (74-106) Calcium Level 9.3 MG/DL (8.5-10.1) Magnesium Level 2.0 MG/DL (1.5-2.5) Total Bilirubin 0.5 MG/DL (0.2-1.0) Aspartate Amino Transf 50 U/L (15-37) (AST/SGOT) Alanine Aminotransferase 89 U/L (12-78) (ALT/SGPT) Alkaline Phosphatase 62 U/L (45-117) Total Creatine Kinase 513 U/L (39-308) Creatine Kinase MB 2.8 NG/ML (0.5-3.6) Creatine Kinase MB % 0.5 % (0.0-4.0) Troponin I LESS THAN 0.02 NG/ML (0.02-0.05) B-Type Natriuretic Peptide LESS THAN 2 PG/ML (0-100) Total Protein 8.3 GM/DL (6.4-8.2) Albumin 4.3 GM/DL (3.4-5.0) Lipase 117 U/L (73-393) Thyroid Stimulating Hormone 8.940 uIU/ML 3rd Gen (0.358-3.740) Urine Opiates Screen NEG (NEG) Urine Barbiturates Screen NEG (NEG) Urine Amphetamines Screen NEG (NEG) Urine Benzodiazepines Screen NEG (NEG) Urine Cocaine Screen NEG (NEG) Urine Cannabinoids Screen NEG (NEG) Imaging Last [address] Angiography 04/02/17 1256 Signed Impressions: Service Date/Time: Sunday, April 02, 2017 13:18 - CONCLUSION: 1. No pulmonary embolus identified. 2. Decreased attenuation of the liver suggesting fatty infiltration. Chato Sepulveda MD Chest X-Ray 04/02/17 0950 Signed Impressions: Service Date/Time: Sunday, April 02, 2017 09:47 - CONCLUSION: 1. No acute cardiopulmonary findings. Chtao Sepulveda MD Objective Remarks GENERAL: This is a well-nourished, mildly obese patient in no acute distress. SKIN: No rashes, ecchymoses or lesions. HEAD: Atraumatic. Normocephalic. EYES: Pupils equal round and reactive. ENT: Nose without bleeding, moderate congestion noted. NECK: Trachea midline. No JVD or lymphadenopathy. CARDIOVASCULAR: Sinus tachycardia without murmurs, gallops, or rubs. RESPIRATORY: Clear to auscultation. Breath sounds equal bilaterally. No wheezes , rales, or rhonchi. GASTROINTESTINAL: Abdomen soft, non-tender, nondistended. No hepato-splenomegaly , or palpable masses. No guarding. MUSCULOSKELETAL: Extremities without clubbing, cyanosis, or edema. NEUROLOGICAL: Awake and alert.. Motor and sensory grossly within normal limits. Five out of 5 muscle strength in all muscle groups. Normal speech. Medications and IVs Current Medications Sodium Chloride 2 ml 2 ml UNSCH PRN IVF FLUSH AFTER USING IV ACCESS Last administered on 04/02/17t 11:34; Start 04/02/17 at 10:00 Sodium Chloride (NS 1000 ml Inj) 1,000 ml @ 999 mls/hr BOLUS ONCE IV Last administered on 04/02/17 10:00; Start 04/02/17 at 10:00; Stop 04/02/17 at 11:00 ; Status DC Amlodipine Besylate 5 mg 5 mg ONCE ONCE PO Last administered on 04/02/17 10: 14; Start 04/02/17 at 10:15; Stop 04/02/17 at 10:16; Status DC Sodium Chloride 1,000 ml @ 999 mls/hr BOLUS ONCE IV Last administered on 04/02 11:34; Start 04/02/17 at 11:45; Stop 04/02/17 at 12:45; Status DC Sodium Chloride (NS 1000 ml Inj) 1,000 ml @ 999 mls/hr BOLUS ONCE IV Last administered on 04/02/17 13:02; Start 04/02/17 at 13:00; Stop 04/02/17 at 14:01 ; Status DC Iohexol (Omnipaque 350 Inj) 75 ml STK-MED ONCE IV Last administered on 13:36; Start 04/02/17 at 13:36; Stop 04/02/17 at 13:37; Status DC Clonidine (Catapres) 0.1 mg Q4H PRN PO sbp > 170; Start 04/02/17 at 18:30 Enalaprilat (Vasotec Inj) 1.25 mg Q6H PRN IV PUSH sbp > 180; Start 04/02/17 at 18:30 Nifedipine (Procardia Xl) 30 mg BID PO ; Start 04/02/17 at 18:30; Stop 04/02/17 at 20:47; Status DC Lorazepam (Ativan) 0.5 mg Q6HR PRN PO anxiety; Start 04/02/17 at 18:30 Ondansetron HCl (Zofran Inj) 4 mg Q6HR PRN IV PUSH n/v; Start 04/02/17 at 18:30 Nifedipine (Procardia Xl) 30 mg BID PO Last administered on 04/02/17 21:02; Start 04/02/17 at 21:00 Metoprolol Tartrate (Lopressor) 25 mg Q12HR PO ; Start 04/03/17 at 09:00 Metoprolol Tartrate (Lopressor) 25 mg ONCE ONCE PO Last administered on t 22:29; Start 04/02/17 at 22:00; Stop 04/02/17 at 22:01; Status DC Allergies Coded Allergies Type Severity Reaction Last Updated Verified No Known Allergies 04/02/17 No Active Scripts Medications Dose Route/Sig Days Date Category Norvasc (Amlodipine Besylate) 5 Mg Tab 5 Mg PO DAILY 04/02/17 Rx A/P Assessment and Plan (04/02/2017) Patient is a 32 year old male presenting with incidental hypertension finding at outpatient office. En route to the ED he experienced 15 minutes of lower left sided chest pain with gradual on/offset. Pain not reproducible by positioning or palpation. Initial presentation blood pressures reached a maximum of 189/114 with pulse of 130. Despite 3 liters of NS bolus, blood pressure remains elevated (161/94) with pulse at 118bpm. Ekg shows sinus tachycardia with nonspecific t wave abnormalities. (04/03/2017) Patient doing well, bp and hr continued to trend down overnight, chest pain seems to be initiated by stress and relieved by relaxation techniques. 1) Hypertensive Crisis Patient previously diagnosed with hypertension; Presents with hypertension and tachycardia with little response to 3 liters of NS Initiate IV beta heydi therapy to address hypertension and tachycardia ( Labetalol due to some alpha activity) Monitor patient overnight to verify control of pressure and pulse Outpatient follow up in one week 2) Sinus Tachycardia Likely secondary to anxiety Treatment with beta blockade (Labetalol) 2) Anxiety Likely etiology for stress induced chest pain, admits to arising in times of stress Consider treatment with outpatient pcp to discuss treatment options 3) Tobacco use Email Producer patient on the benefits of smoking cessation Give patient resources from [employer] and inform of free and reduced nicotine replacement programs 4) Obesity Hypertension likely to lessen with moderate weight loss (04/03/2017) 1) Hypertensive Crisis with tachycardia Hypertension >180 systolic, previous hypertension diagnosis, family history Resolution of hypertension overnight with 25mg lopressor, 30mg Procardia xl, and 5mg norvasc Tachycardia improvement without complete resolution 1 month script 25mg lopressor BID, 20mg lisinopril, evaluate with pcp 2) Sinus Tachycardia Anxiety likely etiology Treated with above hypertensive agents 2) Anxiety Patient not interested in outpatient psychiatry referral, suggest discussion treatment possibilities with pcp Resolution in cardiac and psychological symptoms with relaxation techniques 3) Tobacco use Patient counseled on [employer] resources 4) Nasal congestion Patient advised to avoid decongestants due to possibility of worsening htn and tachycardia Saline rinses with acetaminophen for pain relief 5) Obesity Patient counseled on benefits of weight loss in relationship to htn and cardiac disease Discharge Planning Patient discharge to home with outpatient pcp follow up. Return to ED if patient has recurring chest pain lasting >5 minutes, bp >180/110, or persistent heart palpitations. Desiree Dubose M3 Apr 03, 2017 08:59
[2017-04-03] MEDS ORDERED: METOPROLOL TARTRATE 25 MG TAB PO SCH (09:00)
[2017-04-03] MEDS: NIFEdipine 30 MG SUSTAINED RELEASE TAB PO SCH (09:58)
[2017-04-03 12:04] VITALS: BP 118/78; PULSE 104; RESP 18; TEMP 98.3; O2SAT 97
--- NOTE | 2017-04-03 15:41 | HHI.PR ---
Subjective Remarks pt eager and anxious to go home no cp or sob now. Objective Vitals heart reg lung cta abd s/nt ext no edema Vital Signs Date Time Temp Pulse Resp B/P Pulse Ox O2 Delivery O2 Flow Rate FiO2 04/03/17 12:04 98.3 104 18 118/78 97 04/03/17 08:04 98.1 108 20 121/83 97 04/03/17 05:10 98.2 116 18 129/79 96 04/03/17 00:52 98.5 108 20 132/87 97 04/02/17 22:50 90 04/02/17 20:04 98.3 122 20 177/101 98 04/02/17 17:47 98.4 120 28 168/105 97 04/02/17 17:03 122 20 174/99 97 Room Air 04/02/17 15:58 118 18 161/94 98 Room Air 04/02/17 04/02/17 04/03/17 15:00 23:00 07:00 Intake Total 3000 ml Output Total 1000 ml 400 ml Balance 2000 ml -400 ml Intake IV Total 3000 ml Output Urine Total 1000 ml 400 ml # Voids 2 3 Result Diagram: 04/03/17 0715 04/02/17 0850 A/P Problem List: (1) Hypertension Status: Acute Plan: Pt is 32 yo who presents with severe htn and sinus tachycardia There may be a component of stress/anxiety contributing to the above. No obvious reason for the tachycardia otherwise. No pain, No PE, No fever. No hyperthyroidism. bp controlled on procardia and metoprolol. sinus tach is better but still mildly tachycardic limited bp secondary w/up sent and pending d/c with close f/u pcp for bp recheck and pending labs. also referral to psych or counseling. (2) Tachycardia Status: Acute Plan: see above (3) Anxiety Status: Acute Plan: see above Problem Qualifiers (1) Hypertension: Qualified Code: I10 - Hypertension, unspecified type Angel Chris MD Apr 03, 2017 15:41
[2017-04-03] MEDS ORDERED: METO25TA3 PO (15:55)
[2017-04-03] MEDS ORDERED: NIFE30TA8 PO (15:55)
--- NOTE | 2017-04-03 15:56 | HHI.DCPOC ---
Discharge Care Plan Diagnosis: (1) Hypertension (2) Tachycardia (3) Anxiety Goals to Promote Your Health * To prevent worsening of your condition and complications * To maintain your health at the optimal level Directions to Meet Your Goals Take your medications as prescribed Follow your dietary instruction Follow activity as directed Keep your appointments as scheduled Take your immunizations and boosters as scheduled If your symptoms worsen call your PCP, if no PCP go to Urgent Care Center or Emergency Room Smoking is Dangerous to Your Health. Avoid second hand smoke Call the 24-hour hour crisis hotline for domestic abuse at Angel Chris MD Apr 03, 2017 15:55
[2017-04-03 16:03] VITALS: BP 141/86; PULSE 115; RESP 20; TEMP 98.6; O2SAT 97
== END 2017-04-03 18:59 | disposition home or self-care (01) ==
LOC: NEPD 09:11 → NEDA 14:25 → NEPGCP 17:43
PROVIDERS: ADMIT Hospitalist; ATTEND Hospitalist
DX: I10 Essential (primary) hypertension (principal); R00.0 Tachycardia, unspecified; F41.9 Anxiety disorder, unspecified; E66.9 Obesity, unspecified; Z71.6 Tobacco abuse counseling; Z71.3 Dietary counseling and surveillance; F17.210 Nicotine dependence, cigarettes, uncomplicated; R09.81 Nasal congestion; Z79.899 Other long term (current) drug therapy
CPT/HCPCS: 71010; 71275; 80053; 80307; 82088; 82384; 82533; 82550; 82552; 83690; 83735; 83835; 83880; 84244; 84443; 84484; 85025; 85379; 85610; 85730; 93005; 96360; 96361; 99285; G0378; J7030; Q9967